=== PATIENT | female | born 1990 ===

== ENCOUNTER 2021-09-08 06:00 | Outpatient (RCR) | payer OTHER, SELFPAY | END 2021-10-03 23:59 | disposition home or self-care (01) | LOC: GPT 06:00 | PROVIDERS: PCP Nurse Practitioner; Referring Provider Nurse Practitioner; Visit Provider Nurse Practitioner | DX: Z87.828 Personal history of other (healed) physical injury and trauma (principal) | CPT/HCPCS: 97110; 97112; 97140; 97161 ==

== ENCOUNTER 2021-10-04 06:00 | Outpatient (RCR) | payer OTHER, SELFPAY | END 2021-11-02 23:59 | disposition home or self-care (01) | LOC: GPT 06:00 | PROVIDERS: PCP Nurse Practitioner; Referring Provider Nurse Practitioner; Visit Provider Nurse Practitioner | DX: M25.561 Pain in right knee (principal) | CPT/HCPCS: 97110; 97112; 97116; 97140 ==

== ENCOUNTER 2021-11-03 | Outpatient (RCR) | payer OTHER, SELFPAY | END 2021-11-07 23:59 | disposition home or self-care (01) | LOC: GPT | PROVIDERS: PCP Nurse Practitioner; Referring Provider Nurse Practitioner; Visit Provider Nurse Practitioner | DX: M25.561 Pain in right knee (principal); Z87.828 Personal history of other (healed) physical injury and trauma | CPT/HCPCS: 97110; 97112; 97116; 97530 ==